=== PATIENT | female | born 1980 | race Hispanic/Latino ===

== ENCOUNTER 2020-04-16 10:01 | Emergency (ER) | payer OTHER | END 2020-04-16 13:21 | disposition left against medical advice (07) | LOC: EDH 10:01 | DX: S61.201A Unspecified open wound of left index finger without damage to nail, initial encounter (principal); E11.9 Type 2 diabetes mellitus without complications; Z90.49 Acquired absence of other specified parts of digestive tract; Z98.890 Other specified postprocedural states; Z53.21 Procedure and treatment not carried out due to patient leaving prior to being seen by health care provider ==